=== PATIENT | female | born 1985 | race Caucasian/White ===

== ENCOUNTER 2016-11-12 06:11 | Emergency (ER) | payer OTHER ==
[~2016-11-12] VITALS: Ht 172.7 cm; Wt 79.5 kg
[2016-11-12 06:14] VITALS: BP 130/67
[2016-11-12] MEDS ORDERED: POLYTRIM EYE DR10 ML BOTH EYES (06:32)
== END 2016-11-12 07:04 | disposition home or self-care (01) ==
LOC: EME 06:11
DX: H10.9 Unspecified conjunctivitis (principal); Z88.0 Allergy status to penicillin
CPT/HCPCS: 99281; 99283